=== PATIENT | male | born 1995 | race Two or more races ===

== ENCOUNTER 2020-07-02 18:34 | Emergency (ER) | payer OTHER ==
[~2020-07-02] VITALS: Ht 182.9 cm; Wt 80.7 kg
--- NOTE | 2020-07-02 18:40 | PHYS DOC ---
General Adult EDM: Chief Complaint: NAUSEA/VOMITING/DIARRHEA HPI: HPI: "... I been having a lot of vomiting the last couple days.. today.. I started getting epigastric and chest pain.. I could not keep any thing down tonight... 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 Patient denies any intake of bad food. No recent travel outside [facility]. No recent TDY assignments. No history of trauma. Patient is generally in good health condition. Works out every day. Up-to-date with vaccinations. No specific Covid exposures. No one else in the home are sick. Is on city water. Patient currently localizes pain to epigastric area and slightly to the right. Patient denies any dark or tarry stools. Patient does not give any specific history of diarrhea. Patient denies any specific ill contacts in the intermediate or at home. 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 Denies bloody stools. Did have a 4 diarrhea stools. : Denies dysuria Musculoskeletal: Denies back pain or joint pain Integument: Denies rash Neurologic: Denies headache, focal weakness or sensory changes Endocrine: Denies polyuria or polydipsia Lymphatic: Denies swollen glands Psychiatric: Denies depression or anxiety Family History: Family History: Noncontributory to presentation Current Medications: Current Meds: See nursing for home medications Allergies: Allergies: No known drug allergies Physical Exam: PE: Constitutional: Well developed, well nourished, mild to moderate distress, non- toxic appearance. [] HENT: Normocephalic, atraumatic, bilateral external ears normal, oropharynx dry, no oral exudates, nose slightly injected turbinates. Eyes: PERRLA, EOMI, conjunctiva normal, no discharge. [] Neck: Normal range of motion, no tenderness, supple, no stridor. [] Cardiovascular:Heart rate regular rhythm, no murmur [] Lungs & Thorax: Bilateral breath sounds equal apex with few scattered wheezes. Auscultation [] Abdomen: Bowel sounds hyperactive , soft, mild epigastric and right upper quadrant focal tenderness, does have some generalized tenderness but no focal areas of rebound, no masses, no pulsatile masses. [] Skin: Warm, dry, no erythema, no rash. [] Back: No tenderness, no CVA tenderness. [] Extremities: No tenderness, no cyanosis, no clubbing, ROM intact, no edema. No psoas sign. Neurologic: Alert and oriented X 3, normal motor function, normal sensory function, no focal deficits noted. [] Psychologic: Affect anxious judgement normal, mood normal. [] EKG: EKG: [] Radiology/Procedures: Radiology/Procedures: [][place] [address] IMAGING REPORT Signed PATIENT: JUNE BELL LACCOUNT: [id number] : 1995 LOCATION: ER AGE: 25 SEX: M EXAM STATUS: REG ER ORD. PHYSICIAN: MARTINE WALTERS MD REASON: n, v, epigastric and chest pain PROCEDURE: ACUTE ABDOMEN SERIES ACUTE ABDOMEN SERIES History: Nausea, vomiting, epigastric and chest pain. Comparison: None. Findings: Frontal chest and supine and upright views of the abdomen. Cardiomediastinal silhouette is normal. There is no pleural effusion or pneumothorax. The lungs are clear. No pneumoperitoneum is identified. There are no air-fluid levels on the upright image. No dilated air-filled loops of bowel are seen. There is stool in the right colon. Bowel gas pattern is nonobstructive. No obvious organomegaly. Bones unremarkable. Phleboliths left pelvis. IMPRESSION: 1. No acute cardiopulmonary process. 2. Nonobstructive bowel gas pattern. Electronically signed by: Telly May MD (07/02/2020 7:32 PM) [facility] DICTATED AND SIGNED BY: TELLY MAY MD DATE: 07/02/201931 CC: MARTINE WALTERS MD; PCP,UNKNOWN ~MTH0 0 Heart Score: Risk Factors: Risk Factors: DM, Current or recent (<one month) smoker, HTN, HLP, family history of CAD, obesity. Risk Scores: Score 0 - 3: 2.5% MACE over next 6 weeks - Discharge Home Score 4 - 6: 20.3% MACE over next 6 weeks - Admit for Clinical Observation Score 7 - 10: 72.7% MACE over next 6 weeks - Early Invasive Strategies Course & Med Decision Making: Course & Med Decision Making Pertinent Labs and Imaging studies reviewed. (See chart for details) Patient does clear fluid tx 2 days. Push fluids. Take Tylenol and ibuprofen as needed for discomfort. Take Zofran 8 mg with 4 times a day for active vomiting. Follow-up primary care. Return if any concerns. Recommends self-isolation for the next 10 days. Wear a mask that covers nose and mouth at all times when away from home. Follow up at [place]. Pt. Report s resolution symptoms at time discharge. Impression: 1. Nausea vomiting diarrhea 2. Abdomen pain 3. Viral syndrome [] Dragon Disclaimer: Dragon Disclaimer: This electronic medical record was generated, in whole or in part, using a voice recognition dictation system. Departure Departure: Referrals: PCP,UNKNOWN (PCP) Scripts Ondansetron Hcl (ZOFRAN) 4 Mg Tablet 8 MG PO QIDPRN for n/v, #30 TAB Prov: MARTINE WALTERS MD 07/02/20 [place] Disclaimer This chart was dictated in whole or in part using Voice Recognition software in a busy, high-work load, and often noisy Emergency Department environment. It may contain unintended and wholly unrecognized errors or omissions. MARTINE WALTERS MD Jul 02, 2020 18:40
[2020-07-02 19:27] LABS: BASO # 0.1 x10^3/uL (0.0-0.2); BASO % 1 % (0-3); EOS % 0 % (0-3); HEMATOCRIT 43.9 % (39.0-53.0); HEMOGLOBIN 14.7 g/dL (13.0-17.5); LYMPH # 2.3 x10^3/uL (1.0-4.8); LYMPH % 21 % (24-48); MEAN CORPUSCULAR HEMOGLOBIN 32 pg (25-35); MEAN CORPUSCULAR HGB CONC 34 g/dL (31-37); MEAN CORPUSCULAR VOLUME 95 fL (79-100); MONO % 10 % (0-9); NEUT # 7.2 x10^3uL (1.8-7.7); NEUT % 68 % (31-73); PLATELET COUNT 183 x10^3/uL (140-400); RED BLOOD COUNT 4.62 x10^6/uL (4.30-5.70); RED CELL DISTRIBUTION WIDTH 12.2 % (11.5-14.5); WHITE BLOOD COUNT 10.5 x10^3/uL (4.0-11.0)
[2020-07-02] MEDS ORDERED: KETOROLAC 30 MG/ML VIAL. IVP ONE (19:30)
[2020-07-02] MEDS ORDERED: IV RINGERS SOLUTION,LACTATED 1,000 ML IV SCH (19:30)
[2020-07-02] MEDS ORDERED: ONDANSETRON PF 4 MG/2 ML VIAL. IVP ONE (19:30)
[2020-07-02] MEDS ORDERED: FAMOTIDINE 20 MG/2 ML VIAL IVP ONE (19:30)
[2020-07-02 19:34] LABS: CALCIUM 8.7 mg/dL (8.5-10.1); CREATININE 1.2 mg/dL (0.7-1.3); GFR 73.2; POTASSIUM 3.5 mmol/L (3.5-5.1)
--- NOTE | 2020-07-02 19:35 | RAD ---
ACUTE ABDOMEN SERIES History: Nausea, vomiting, epigastric and chest pain. Comparison: None. Findings: Frontal chest and supine and upright views of the abdomen. Cardiomediastinal silhouette is normal. There is no pleural effusion or pneumothorax. The lungs are clear. No pneumoperitoneum is identified. There are no air-fluid levels on the upright image. No dilated air-filled loops of bowel are seen. There is stool in the right colon. Bowel gas pattern is nonobstructive. No obvious organomegaly. Bones unremarkable. Phleboliths left pelvis. IMPRESSION: 1. No acute cardiopulmonary process. 2. Nonobstructive bowel gas pattern. Electronically signed by: Telly Barney MD (07/02/2020 7:32 PM) [facility]
[2020-07-02 19:46] LABS: ALBUMIN 4.1 g/dL (3.4-5.0); DIRECT BILIRUBIN 0.1 mg/dL (0.0-0.2); MAGNESIUM 1.9 mg/dL (1.8-2.4); TOTAL BILIRUBIN 0.4 mg/dL (0.2-1.0); TOTAL PROTEIN 7.7 g/dL (6.4-8.2)
[2020-07-02 20:37] LABS: BARBITURATES NEG (NEG); BENZODIAZEPINES NEG (NEG); CANNABINOIDS NEG (NEG); COCAINE NEG (NEG); METHADONE NEG (NEG); OPIATES NEG (NEG); PHENCYCLIDINE NEG (NEG)
[2020-07-02 20:42] LABS: AMPHETAMINE/METHAMPHETAMINE NEG (NEG)
[2020-07-02 20:58] LABS: CLARITY,URINE CLEAR; COLOR,URINE YELLOW
[2020-07-02 20:59] LABS: BACTERIA,URINE 0 /HPF (0-FEW); BILIRUBIN,URINE NEG (NEG); GLUCOSE,URINE NEG (NEG); NITRITE,URINE NEG (NEG); RBC,URINE 0 /HPF (0-2); SQUAMOUS EPITHELIAL CELL,UR OCC /LPF; WBC,URINE 0 /HPF (0-4)
[2020-07-02 21:07] VITALS: BP 110/68
[2020-07-02] MEDS ORDERED: ONDA4TAB7 PO (21:47)
--- NOTE | 2020-07-03 08:35 | EKG ---
[address] [address] Test Date: 2020-07-02 Test Time: 21:34:19 Pat Name: JUNE BELL Department: Room: Gender: M [employer] Consultant: THAI : 1995 Requested By: MARTINE WALTERS Order Number: [id number] Reading MD: Measurements Intervals [place] Rate: 78 P: 47 UT: 134 QRS: 81 QRSD: 90 T: 26 QT: 372 QTc: 428 Interpretive Statements SINUS RHYTHM NORMAL ECG RI6.02 No previous ECG available for comparison
== END 2020-07-02 21:57 | disposition home or self-care (01) ==
LOC: ER 18:34
DX: B34.9 Viral infection, unspecified (principal); R11.2 Nausea with vomiting, unspecified; R19.7 Diarrhea, unspecified; R10.13 Epigastric pain
CPT/HCPCS: 36415; 74022; 80048; 80076; 80307; 81001; 82150; 82550; 83690; 83735; 83880; 84484; 85025; 85610; 85730; 93005; 96361; 96374; 96375; 99285; J1885; J2405; J3490; J7120

== ENCOUNTER 2021-07-03 18:42 | Emergency (ER) | payer OTHER ==
[~2021-07-03] VITALS: Ht 182.9 cm; Wt 80.7 kg
[~2021-07-03 18:42] MED LIST: ONDA4TAB7 PO
--- NOTE | 2021-07-03 19:00 | PHYS DOC ---
Past History Past Medical History: Anxiety Past Surgical History: No Surgical History Alcohol Use: None General Adult EDM: Chief Complaint: ANKLE PROBLEM HPI: HPI: ".. I twisted my Rt ankle playing basket ball... " Patient is a 26 year old male who presents with injury Rt. ankle. Patient complains of inversion type injury. Localized pain primarily to lateral malleolus area. No upper leg tenderness. Distal neurovascular is equal to left foot and ankle. Has a mild foot squeeze finding. Marked pain with inversion. Some anterior draw. Patient has not injured right ankle previously. Has had previous injury to left ankle. No recent travel. No specific ill contacts. Up-to-date with vaccinations including Covid and flu through [facility] in the . No overseas assignments. Normally healthy.. Review of Systems: Review of Systems: Constitutional: Denies fever or chills Eyes: Denies change in visual acuity HENT: Denies nasal congestion or sore throat Respiratory: Denies cough or shortness of breath Cardiovascular: Denies chest pain or edema GI: Denies abdominal pain, nausea, vomiting, bloody stools or diarrhea : Denies dysuria Musculoskeletal: Complains of right ankle pain Integument: Denies rash Neurologic: Denies headache, focal weakness or sensory changes Endocrine: Denies polyuria or polydipsia Lymphatic: Denies swollen glands Psychiatric: Denies depression or anxiety Family History: Family History: Noncontributory to presentation Current Medications: Current Meds: See nursing for home meds Allergies: Allergies: Allergies Coded Allergies Type Severity Reaction Last Updated Verified No Known Drug Allergies 07/02/20 No Physical Exam: PE: Constitutional: Well developed, well nourished, no acute distress, non-toxic appearance. [] HENT: Normocephalic, atraumatic, bilateral external ears normal, oropharynx moist, no oral exudates, nose normal. [] Eyes: PERRLA, EOMI, conjunctiva normal, no discharge. [] Neck: Normal range of motion, no tenderness, supple, no stridor. [] Cardiovascular:Heart rate regular rhythm, no murmur [] Lungs & Thorax: Bilateral breath sounds clear to auscultation [] Abdomen: Bowel sounds normal, soft, no tenderness, no masses, no pulsatile masses. [] Skin: Warm, dry, no erythema, no rash. [] Back: No tenderness, no CVA tenderness. [] Extremities: Right ankle tenderness, no cyanosis, no clubbing, ROM intact, right ankle edema. [] Neurologic: Alert and oriented X 3, normal motor function, normal sensory function, no focal deficits noted. [] Psychologic: Affect anxious, judgement normal, mood normal. [] EKG: EKG: [] Radiology/Procedures: Radiology/Procedures: [][place] [address] IMAGING REPORT Signed PATIENT: JUNE BELL LACCOUNT: [id number] : 1995 LOCATION: ER AGE: 26 SEX: M EXAM STATUS: REG ER ORD. PHYSICIAN: MARTINE WALTERS MD REASON: twister playing basket ball PROCEDURE: ANKLE RIGHT 3V Study: XR EXAM OF ANKLE_RIGHT 3VIEWS Indication: Twisting injury. Comparison: None. Findings: Edematous soft tissues primarily at the lateral aspect of the lower leg through the ankle. The malleoli are intact. Symmetric ankle mortise. Unremarkable talar dome. No acute fracture seen throughout the partially assessed foot. Impression: No acute fracture is identified. No traumatic malalignment considering the absence of weightbearing. Edematous soft tissues. Electronically signed by: GABINO SALCEDO MD (07/03/2021 8:39 PM) [facility] DICTATED AND SIGNED BY: GABINO SALCEDO MD DATE: 07/03/212037 CC: MILTON JUÁREZ; MARTINE WALTERS MD ~MTH0 0 Heart Score: C/O Chest Pain: N/A Risk Factors: Risk Factors: DM, Current or recent (<one month) smoker, HTN, HLP, family history of CAD, obesity. Risk Scores: Score 0 - 3: 2.5% MACE over next 6 weeks - Discharge Home Score 4 - 6: 20.3% MACE over next 6 weeks - Admit for Clinical Observation Score 7 - 10: 72.7% MACE over next 6 weeks - Early Invasive Strategies Course & Med Decision Making: Course & Med Decision Making Pertinent Labs and Imaging studies reviewed. (See chart for details) Ice packs as needed. Elevate. Wear splint. Tylenol and ibuprofen for discomfort. Follow-up primary care. Return if any concerns. Re- xray in two weeks if no improvement. Distal neurovascular intact after application of splint Marv wrap. Impression: 1. Right ankle sprain [] [place] Disclaimer: [place] Disclaimer: This electronic medical record was generated, in whole or in part, using a voice recognition dictation system. Departure Departure: Referrals: MILTON JUÁREZ (PCP) [place] Disclaimer This chart was dictated in whole or in part using Voice Recognition software in a busy, high-work load, and often noisy Emergency Department environment. It may contain unintended and wholly unrecognized errors or omissions. MARTINE WALTERS MD Jul 03, 2021 19:00
[2021-07-03] MEDS ORDERED: IBUPROFEN 600 MG TABLET. PO ONE (19:15)
[2021-07-03] MEDS ORDERED: ACETAMINOPHEN 500 MG TABLET PO ONE (19:15)
--- NOTE | 2021-07-03 20:42 | RAD ---
Study: XR EXAM OF ANKLE_RIGHT 3VIEWS Indication: Twisting injury. Comparison: None. Findings: Edematous soft tissues primarily at the lateral aspect of the lower leg through the ankle. The malleo li are intact. Symmetric ankle mortise. Unremarkable talar dome. No acute fracture seen throughout th e partially assessed foot. Impression: No acute fracture is identified. No traumatic malalignment considering the absence of weightbearing. Edematous soft tissues. Electronically signed by: GABINO SALCEDO MD (07/03/2021 8:39 PM) [facility]
[2021-07-03 21:15] VITALS: BP 107/68
== END 2021-07-03 21:15 | disposition home or self-care (01) ==
LOC: ER 18:42
DX: S93.401A Sprain of unspecified ligament of right ankle, initial encounter (principal); F41.9 Anxiety disorder, unspecified; X50.9XXA Other and unspecified overexertion or strenuous movements or postures, initial encounter; Y93.67 Activity, basketball; Y92.89 Other specified places as the place of occurrence of the external cause; Y99.8 Other external cause status
CPT/HCPCS: 29515; 73610; 99283